=== PATIENT | male | born 1975 | race African-American/Black ===

== ENCOUNTER 2019-06-14 17:37 | Inpatient (IN) | payer MEDICAID ==
[~2019-06-14] VITALS: Ht 175.3 cm; Wt 89.0 kg
[2019-06-14] MEDS ORDERED: HYDROcodone/APAP 5/325 TABLET PO ONE (18:30)
[2019-06-14] MEDS ORDERED: ONDANSETRON 2MG/ML, 2ML ONE (18:59)
[2019-06-14] MEDS ORDERED: MORPHINE SULFATE 4 MG/ML, 1ML ONE ×2 (18:59→19:38)
[2019-06-14] MEDS ORDERED: MORPHINE SULFATE 4 MG/ML, 1ML IVPush ONE (19:00)
[2019-06-14] MEDS ORDERED: ONDANSETRON 2MG/ML, 2ML IVPush ONE (19:00)
--- NOTE | 2019-06-14 19:34 | NUR ---
MULTIPLE FRACTURES TO TIB/FIB AND ANKLE ON LEFT LEG. TO BE ADMITTED FOR ORIF TOMORROW.
[2019-06-14] MEDS ORDERED: POTASSIUM CHLORIDE 20 MEQ in D5%-0.45% NACL 1,000 ML IV ONE (19:35)
--- NOTE | 2019-06-14 19:42 | NUR ---
PA TO ROOM TO SPLINT. PATIENT MEDICATED PER EMAR PRIOR TO SPLINTING
[2019-06-14] MEDS ORDERED: ONDANSETRON 2MG/ML, 2ML IVPush PRN ×2 (20:00→22:00)
[2019-06-14] MEDS ORDERED: MORPHINE SULFATE 4 MG/ML, 1ML IVPush PRN (20:00)
--- NOTE | 2019-06-14 20:12 | NUR ---
REPORT GIVEN TO GUSTAVO ARGUETA. PLAN OF CARE DISCUSSED.
[2019-06-14 21:00] VITALS: BP 142/87
[2019-06-14] MEDS ORDERED: morphine SULFATE 10 MG/ML, 1ML IVPush PRN (22:00)
[2019-06-14] MEDS: SODIUM CHLORIDE 0.9% 1,000 ML IV SCH (22:46)
[2019-06-15] VITALS (8 sets, daily range): BP systolic 119–183; BP diastolic 71–94
[2019-06-15] MEDS: SODIUM CHLORIDE 0.9% 1,000 ML IV SCH ×2 (07:37→18:00)
[2019-06-15] MEDS ORDERED: ONDANSETRON 2MG/ML, 2ML IV PRN ×2 (08:00→19:30)
[2019-06-15] MEDS: hydrALAzine 20 MG/ML, 1ML IV PRN (09:29)
[2019-06-15] MEDS: SODIUM CHLORIDE FLUSH 10ML SYR IVF SCH ×2 (09:29→21:00)
[2019-06-15] MEDS: POTASSIUM CHLORIDE 40 MEQ in D5%-0.45% NACL 1,000 ML IV SCH (09:29)
[2019-06-15] MEDS ORDERED: MIDAZOLAM 1 MG/ML, 2ML ONE (14:11)
[2019-06-15] MEDS ORDERED: FENTANYL PF 250 MCG/5ML ONE (14:12)
[2019-06-15] MEDS ORDERED: ONDANSETRON 2MG/ML, 2ML ONE (15:15)
[2019-06-15] MEDS ORDERED: SUCCINYLCHOLINE 20 MG/ML, 10ML ONE (15:15)
[2019-06-15] MEDS ORDERED: PROPOFOL 10 MG/ML, 20ML ONE (15:15)
[2019-06-15] MEDS ORDERED: DEXAMETHASONE 4 MG/ML, 1ML ONE (15:15)
[2019-06-15] MEDS ORDERED: ROCURONIUM 10 MG/ML,10ML ONE (15:15)
[2019-06-15] MEDS ORDERED: BUPIVACAINE/PF-EPI 0.25% 1:200K ONE (15:26)
[2019-06-15] MEDS ORDERED: BUPIVACAINE/PF 0.5% ONE (15:27)
[2019-06-15] MEDS ORDERED: EPINEPHRINE 1 MG/ML, 1ML ONE (15:27)
[2019-06-15] MEDS ORDERED: hydrALAzine 20 MG/ML, 1ML ONE (17:52)
[2019-06-15] MEDS ORDERED: FENTANYL PF 100 MCG/2ML IV PRN (18:00)
[2019-06-15] MEDS ORDERED: OXYcodone 5 MG/5 ML ORAL.SOL UDC PO PRN (18:00)
[2019-06-15] MEDS ORDERED: MEPERIDINE/PF 25MG/0.5ML IVPush PRN (18:00)
[2019-06-15] MEDS ORDERED: hydrALAzine 20 MG/ML, 1ML IV PRN (18:00)
[2019-06-15] MEDS ORDERED: PROMETHAZINE 25 MG/ML, 1ML IV PRN (18:00)
[2019-06-15] MEDS ORDERED: HYDROmorphone 1 MG/ML, 1ML INJ IV PRN (18:00)
[2019-06-15] MEDS ORDERED: METOCLOPRAMIDE 5 MG/ML, 2ML IV PRN (18:00)
[2019-06-15] MEDS ORDERED: ALBUTEROL SULFATE 2.5 MG/3 ML NPPB PRN (18:00)
[2019-06-15] MEDS ORDERED: ONDANSETRON 2MG/ML, 2ML IVPush PRN (18:00)
[2019-06-15] MEDS ORDERED: LABETALOL 5MG/ML, 20ML IV PRN (18:00)
[2019-06-15] MEDS ORDERED: ACETAMINOPHEN 325 MG TABLET PO PRN (18:00)
[2019-06-15] MEDS ORDERED: KETOROLAC 30 MG/1 ML IV PRN (18:00)
[2019-06-15] MEDS ORDERED: KETOROLAC 30 MG/1 ML ONE (18:04)
[2019-06-15] MEDS ORDERED: ACETAMINOPHEN 325 MG TABLET ONE (18:05)
[2019-06-15] MEDS ORDERED: ACETAMINOPHEN 650 MG/20.3 ML UDC ONE (18:05)
[2019-06-15] MEDS ORDERED: OXYcodone 5 MG/5 ML ORAL.SOL UDC ONE (19:09)
[2019-06-15] MEDS ORDERED: POTASSIUM CHLORIDE 40 MEQ in D5%-0.45% NACL 1,000 ML IV SCH (19:30)
[2019-06-15] MEDS ORDERED: OXYcodone/APAP 5/325MG TABLET PO PRN (19:30)
[2019-06-15] MEDS ORDERED: morphine SULFATE 10 MG/ML, 1ML IV PRN (19:30)
[2019-06-15] MEDS ORDERED: SODIUM CHLORIDE FLUSH 10ML SYR IVF SCH (21:00)
[2019-06-15] MEDS: CEFAZOLIN PMX 1GM/50ML 50 ML IV SCH (22:48)
[2019-06-16 01:09] VITALS: BP 143/76
[2019-06-16] MEDS: POTASSIUM CHLORIDE 40 MEQ in D5%-0.45% NACL 1,000 ML IV SCH ×2 (03:51→16:36)
[2019-06-16] MEDS: OXYcodone/APAP 5/325MG TABLET PO PRN ×5 (03:55→23:16)
[2019-06-16 04:50] VITALS: BP 183/84
[2019-06-16] MEDS: morphine SULFATE 10 MG/ML, 1ML IV PRN ×2 (05:28→20:32)
[2019-06-16] MEDS: hydrALAzine 20 MG/ML, 1ML IV PRN ×2 (05:28→20:31)
[2019-06-16 05:59] VITALS: BP 139/81
[2019-06-16] MEDS: CEFAZOLIN PMX 1GM/50ML 50 ML IV SCH (06:37)
[2019-06-16 07:24] VITALS: BP 169/82
[2019-06-16] MEDS: SODIUM CHLORIDE FLUSH 10ML SYR IVF SCH ×2 (09:00→20:32)
[2019-06-16] MEDS: ENOXAPARIN 40 MG/0.4 ML SQ SCH (09:34)
[2019-06-16 13:33] VITALS: BP 168/84
[2019-06-16 19:17] VITALS: BP 181/79
[2019-06-17 02:19] VITALS: BP 139/73
[2019-06-17] MEDS: POTASSIUM CHLORIDE 40 MEQ in D5%-0.45% NACL 1,000 ML IV SCH (04:25)
[2019-06-17] MEDS: OXYcodone/APAP 5/325MG TABLET PO PRN ×4 (04:26→16:25)
[2019-06-17 04:48] LABS: CREATININE 0.66 mg/dL (0.7-1.3)
[2019-06-17 07:17] VITALS: BP 150/74
[2019-06-17] MEDS ORDERED: OXYC5TAB3 PO (08:26)
[2019-06-17] MEDS: SODIUM CHLORIDE FLUSH 10ML SYR IVF SCH (08:27)
[2019-06-17] MEDS ORDERED: DOCU-131 PO (08:27)
[2019-06-17] MEDS: ENOXAPARIN 40 MG/0.4 ML SQ SCH (08:27)
[2019-06-17] MEDS ORDERED: ACET-1600 PO (08:28)
[2019-06-17] MEDS ORDERED: ASPI-515 PO (08:28)
[2019-06-17 13:18] VITALS: BP 147/73
[2019-06-17 19:00] VITALS: BP 130/66
== END 2019-06-17 20:02 | disposition home or self-care (01) | DRG 494 ==
LOC: ED 20:22 → EDIP 20:33 → 4NE 20:38
PROVIDERS: ADMIT Orthopaedic Surgery; ATTEND Orthopaedic Surgery
PROC: 2W3TX1Z Immobilization of Left Foot using Splint (ICD-10-PCS; 2019-06-14)
PROC: 0QSH04Z Reposition Left Tibia with Internal Fixation Device, Open Approach (ICD-10-PCS; 2019-06-15)
PROC: 3E0T3BZ Introduction of Anesthetic Agent into Peripheral Nerves and Plexi, Percutaneous Approach (ICD-10-PCS; 2019-06-15)
PROC: 0QSK04Z Reposition Left Fibula with Internal Fixation Device, Open Approach (ICD-10-PCS; principal; 2019-06-15 14:00)
DX: S82.872A Displaced pilon fracture of left tibia, initial encounter for closed fracture (principal); G89.11 Acute pain due to trauma; F17.210 Nicotine dependence, cigarettes, uncomplicated; W13.9XXA Fall from, out of or through building, not otherwise specified, initial encounter; Y93.89 Activity, other specified; Y92.89 Other specified places as the place of occurrence of the external cause; Y99.8 Other external cause status
CPT/HCPCS: 36415; 76000; 82565; 99285; C1713; G0378; J0171; J0690; J1100; J1650; J1885; J2250; J2405; J2704; J3010; J3480; J0330; J0360; J2270; J7030

== ENCOUNTER 2021-02-23 13:22 | Outpatient (CLI) | payer MEDICAID ==
[~2021-02-23 13:22] MED LIST: ACET-1600 PO; ASPI-963 PO; DOCU-131 PO; OXYC5TAB98 PO
== END 2021-02-23 23:59 | disposition home or self-care (01) ==
LOC: CFH 13:22
PROVIDERS: ATTEND Orthopaedic Surgery
DX: M25.772 Osteophyte, left ankle (principal); M12.572 Traumatic arthropathy, left ankle and foot